=== PATIENT | female | born 1980 ===

== ENCOUNTER 2019-06-15 20:11 | Emergency (ER) | payer OTHER, SELFPAY ==
[2019-06-15 20:20] VITALS: BP 135/100; PULSE 99; RESP 15; TEMP 36.8; O2SAT 99; BMI 33.6
--- NOTE | 2019-06-15 20:23 | DI.US.S_ITS ---
PROCEDURE: US OB LIMITED INDICATIONS: CRAMPING OUTSIDE/PRIOR DATING DATA: Last menstrual period (LMP): Unknown. LMP-based estimated date of delivery (AKANKSHA): Not applicable. First dating scan (date and location): 06/15/19. Estimated date of delivery (AKANKSHA) from first dating scan: 11/17/2019. TECHNIQUE: Real-time scanning was performed of the fetus, with image documentation. Endovaginal scanning: Not performed COMPARISON: None. FINDINGS: A single living intrauterine gestation is present. Presentation: Vertex. Placenta: Placental position is anterior fundal, without previa. Amniotic fluid index: 10.8 cm cm, normal range is 5-24 cm. largest vertical fluid pocket measured 3.0 cm. heart rate: 141 beats per minute. Maternal cervical canal: 3.5 cm long. Normal lower limit is 2.5 cm. Estimated gestational age is approximately 17 weeks and 6 days. No evidence for perigestational hemorrhage. No sonographic evidence to suggest placental abruption. IMPRESSION: 1. Single living intrauterine gestation with an estimated gestational age of approximately 17 weeks and 6 days. 2. No acute sonographic abnormalities identified. 3. Recommend routine second trimester anatomic screening survey. No significant discrepancy with the manager shift radiology preliminary report. Dictated by: Jatinder Grigsby M.D. on 06/16/2019 at 10:21 Approved by: Jatinder Grigsby M.D. on 06/16/2019 at 10:25
[2019-06-15] MEDS: METOCLOPRAMIDE 10 MG/2 ML INJ IV (20:45)
[2019-06-15] MEDS: SODIUM CHLORIDE 0.9% 1,000 ML 1000 ML IV (20:45)
[2019-06-15 20:47] LABS: Add Manual Diff / Slide Review NO; Basophils Absolute Auto 100 /uL (0-100); Basophils Percent Auto 0.9 % (0-2); Eosinophils Absolute Auto 100 /uL (0-450); Hematocrit 39.5 % (36-46); Hemoglobin 13.2 g/dL (12.0-16.0); Lymphocytes Absolute Auto 2500 /uL (1100-4500); Mean Corpuscular HGB Conc 33.4 % (30-36); Mean Corpuscular Hemoglobin 26.8 PG (26-34); Mean Corpuscular Volume 80.5 fL (80-100); Monocytes Absolute Auto 500 /uL (0-900); Monocytes Percent Auto 4.2 % (3-14); Neutrophils Absolute Auto 9700 /uL (1500-7000); Neutrophils Percent Auto 74.9 % (50-75); Platelet Count 309 X10^3/uL (150-400); Red Blood Cell Count 4.92 X10^6/uL (4.0-5.2); Red Cell Distribution Width 13.5 % (11.6-14.8)
[2019-06-15 21:02] LABS: Prothrombin Time 11.1 SECONDS (10.1-12.7)
[2019-06-15 21:04] LABS: PTT Partial Thromboplastin Tim 29 SECONDS (26.4-36.2)
[2019-06-15 21:06] LABS: Alanine Aminotransferase 6 IU/L (9-52); Albumin Globulin Ratio 1.1 (1.0-2.8); Alkaline Phosphatase 90 U/L (38-126); Aspartate Aminotransferase 22 IU/L (14-36); Bilirubin Total 0.4 mg/dL (0.2-1.3); Blood Urea Nitrogen 8 mg/dL (7-17); Calcium 9.5 mg/dL (8.4-10.2); Carbon Dioxide 23 mmol/L (22-32); Chloride 103 mmol/L (98-107); Estimated Glomerular Filt Rate > 60.0 mL/min (>60); Globulin 3.5 g/dL (1.7-4.1); Glucose 190 mg/dL (70-100); HEMOLYSIS 43 (0-50); Magnesium 1.8 mg/dL (1.6-2.3); Potassium 3.9 mmol/L (3.4-5.1); Sodium 136 mmol/L (137-145); Total Protein 7.5 g/dL (6.3-8.2)
[2019-06-15 21:38] VITALS: BP 114/64; PULSE 93; RESP 16; O2SAT 100
[2019-06-15 22:09] VITALS: BP 127/76; PULSE 94; RESP 16; O2SAT 98
--- NOTE | 2019-06-15 22:11 | ED_ITS ---
HPI - Headache General Chief Complaint: Headache Stated Complaint: 18wks preg,headache Time Seen by Provider: 06/15/19 20:16 Source: patient and family Mode of arrival: ambulatory Limitations: no limitations History of Present Illness HPI Narrative: 38-year-old female nonsmoker with history of hypertension is a she a P1 at 18 weeks and presents with her the chief complaint of a left-sided headache off and on for the past few days. She denies other symptoms such as blurred vision, nausea, vomiting or neurologic symptoms such as numbness, tingling or weakness. She has had no recent injury. She has been eating and drinking without difficulty. Her diabetes is become increasingly difficult to control and she was recently put on insulin. She is considered a high risk and managed by [facility] in [place]. She denies much in the way of provocation or palliation MD Complaint: headache Onset description: gradual Location: left Severity: moderate Quality: aching and throbbing Relieving factors: nothing Exacerbating factors: none Associated symptoms: none Treatments prior to arrival: acetaminophen Related Data Allergies Allergy/AdvReac Type Severity Reaction Status Date / Time iodine Allergy Verified 06/15/19 20:26 Sulfa (Sulfonamide Allergy Verified 06/15/19 20:26 Antibiotics) Review of Systems Constitutional Constitutional: Denies chills, Denies fatigue, Denies fever(s), Denies frequent falls, Reports headache(s), Denies lethargy and Denies weakness Eyes Eyes: Denies change in vision, Denies eye discharge, Denies irritation and Denies loss of vision ENT Ears, Nose, Mouth, and Throat: Denies change in voice, Denies dizziness, Reports headache(s), Denies neck pain, Denies sore throat and Denies throat swelling Cardiovascular Cardiovascular: Denies chest pain, Denies irregular heart rhythm, Denies lightheadedness, Denies palpitations, Denies dyspnea, Denies dyspnea on exertion and Denies orthopnea Respiratory Respiratory: Denies cough, Denies dyspnea, Denies dyspnea on exertion and Denies wheezing Gastrointestinal Gastrointestinal: Denies abdominal pain, Denies change in bowel habits, Denies diarrhea, Denies nausea and Denies vomiting Genitourinary Genitourinary: Denies hematuria, Denies flank pain, Denies urinary incontinence and Denies urinary urgency Musculoskeletal Musculoskeletal: Denies back pain, Denies muscle weakness, Denies neck pain, Denies numbness and Denies tingling Integumentary/Breasts Skin/Breast: Denies pruritus, Denies erythema, Denies rash and Denies wounds Neurologic Neurologic: Denies behavioral changes, Denies confusion, Denies dizziness, Denies frequent falls, Reports headache(s), Denies loss of vision, Denies numbness, Denies tingling and Denies weakness Psychiatric Psychiatric: Denies anxiety, Denies behavioral changes, Denies confusion, Denies depression, Denies homicidal ideation and Denies suicidal ideation Endocrine Endocrine: Denies fatigue, Denies flushing and Denies palpitations Hematologic/Lymphatic Hematologic/Lymphatic: Denies easy bruising Allergic/Immunologic Allergic/Immunologic: Denies urticaria, Denies throat swelling and Denies wheezing PFSH Social History Smoking Status: Unknown if ever smoked Social History Smoking Status: Unknown if ever smoked Exam Narrative Exam Narrative: GENERAL: [38] year old patient appears stated age. Well- nourished, well-developed patient, in mild distress. Rubbing the left side of her head HEAD: Atraumatic. Normocephalic. EYES: Pupils equal round and reactive. Extraocular motions intact. No scleral icterus. No injection or drainage. ENT: Nose without bleeding, purulent drainage. Throat without erythema, tonsillar hypertrophy or exudate. Airway patent. NECK: Trachea midline. Non tender CARDIOVASCULAR: Regular rate and rhythm without murmurs, gallops, or rubs. RESPIRATORY: Clear to auscultation. Breath sounds equal bilaterally. No wheezes, rales, or rhonchi. GASTROINTESTINAL: Abdomen soft, non-tender, nondistended. EXTREMITIES: No edema or joint tenderness. BACK: Nontender without deformity or crepitance. No flank tenderness. NEURO: AOx3. SKIN: No rash or erythema of visible areas NIH Stroke Scale 1a. LOC: Patient is alert and keenly responsive (0) 1b. LOC Questions: Patient answers both LOC questions accurately (0) 1c. LOC Commands: Patient performs both tasks correctly (0) 2. Best Gaze: Normal (0) 3. Visual: No visual loss (0) 4. Facial palsy: Normal symmetrical movements (0) 5. Motor arm: No drift (0) 6. Motor leg: No drift (0) 7. Limb ataxia: Absent (0) 8. Sensory: Normal (0) 9. Best language: No aphasia; normal (0) 10. Dysarthria: Normal (0) 11. Extinction and inattention: No abnormality (0) NIHSS: 0 Initial Vital Signs Initial Vital Signs: Vital Signs Temperature 98.2 F 06/15/19 20:20 Pulse Rate 99 H 06/15/19 20:20 Respiratory Rate 15 06/15/19 20:20 Blood Pressure 135/100 H 06/15/19 20:20 Pulse Oximetry 99 06/15/19 20:20 Course Orders Ordered: ED Orders 06/15/19 20:23 US OB limited Stat 06/15/19 20:35 Complete Blood Count AUTO DIFF Stat Comprehensive Metabolic Panel Stat Magnesium Stat Partial Thromboplastin Time Stat Prothrombin Time INR Stat Discontinued Medications Acetaminophen (Tylenol) 975 mg PO NOW ONE Stop: 06/15/19 23:11 Last Admin: 06/15/19 23:13 Dose: 975 mg Documented by: MASSIEL Sodium Chloride (Normal Saline 0.9%) 1,000 mls @ 1,000 mls/hr IV BOLUS ONE Stop: 06/15/19 21:22 Last Infusion: 06/15/19 23:14 Dose: 0 mls/hr Documented by: Admin: 06/15/19 20:45 Dose: 1,000 mls/hr Documented by: ROLY Metoclopramide HCl (Reglan) 10 mg IV NOW ONE Stop: 06/15/19 20:24 Last Admin: 06/15/19 20:45 Dose: 10 mg Documented by: ROLY Reevaluation(s) Reevaluation #1: Significant improvement of symptoms after above-stated therapies Consultations Consultation #1: Discussion with OB Gyne regarding other atypical headaches very of those in . After discussion of history, physical and response to therapies there is no suggestion/recommendation to further pursue other diagnosis. OK for DC and follow up Vital Signs Vital signs: Vital Signs - 8 hr 06/15/19 21:38 06/15/19 22:09 06/15/19 22:56 Pulse Rate 93 H 94 H 101 H Respiratory Rate 16 16 14 Blood Pressure Blood Pressure [Left Arm] 114/64 127/76 119/63 Pulse Oximetry 100 98 98 09/06/19 00:35 Pulse Rate 98 H Respiratory Rate 18 Blood Pressure 122/73 Blood Pressure [Left Arm] Pulse Oximetry 98 MDM - Headache Lab Data Result diagrams: 06/15/19 20:35 06/15/19 20:35 Labs: Lab Results 06/15/19 06/15/19 06/15/19 Range/Units 20:35 20:35 20:35 WBC 13.0 H (4.5-11.0) X10^3/uL RBC 4.92 (4.0-5.2) X10^6/uL Hgb 13.2 (12.0-16.0) g/dL Hct 39.5 (36-46) % MCV 80.5 (80-100) fL MCH 26.8 (26-34) PG MCHC 33.4 (30-36) % RDW 13.5 (11.6-14.8) % Plt Count 309 (150-400) X10^3/uL Neut % (Auto) 74.9 (50-75) % Lymph % (Auto) 19.0 L (25-40) % Roberts % (Auto) 4.2 (3-14) % Eos % (Auto) 1.0 L (2-4) % Baso % (Auto) 0.9 (0-2) % Neut # (Auto) 9700 H (5713-4701) /uL Lymph # (Auto) 2500 (1981-9964) /uL Roberts # (Auto) 500 (0-900) /uL Eos # (Auto) 100 (0-450) /uL Baso # (Auto) 100 (0-100) /uL PT 11.1 (10.1-12.7) SECONDS INR 1.0 (0.9-1.3) APTT 29 (26.4-36.2) SECONDS Sodium 136 L (137-145) mmol/L Potassium 3.9 (3.4-5.1) mmol/L Chloride 103 (98-107) mmol/L Carbon Dioxide 23 (22-32) mmol/L BUN 8 (7-17) mg/dL Creatinine 0.50 L (0.52-1.04) mg/dL Estimated GFR > 60.0 (>60) mL/min BUN/Creatinine Ratio 16.0 (6-22) Glucose 190 H (70-100) mg/dL Calcium 9.5 (8.4-10.2) mg/dL Magnesium 1.8 (1.6-2.3) mg/dL Total Bilirubin 0.4 (0.2-1.3) mg/dL AST 22 (14-36) IU/L ALT 6 L (9-52) IU/L Alkaline Phosphatase 90 (38-126) U/L Total Protein 7.5 (6.3-8.2) g/dL Albumin 4.0 (3.5-5.0) g/dL Globulin 3.5 (1.7-4.1) g/dL Albumin/Globulin Ratio 1.1 (1.0-2.8) Urine Dip Bedside Urine Glucose 1000 mg/dl Bedside Urine Bilirubin - Negative Bedside Urine Ketone + 15 Urine Specific [place] 1.025 Bedside Urine Occult Blood - Negative Bedside Urine pH 6.0 Bedside Urine Protein +/- 15 Bedside Urine Urobilinogen +/- 1mg Bedside Urine Nitrite - Negative Bedside Urine Leukocytes - Negative Esterase MDM Narrative Medical decision making narrative: Multiple etiologies for patient's symptoms considered including: [Hypertensive emergency versus preeclampsia (thought less likely given rapid improvement of blood pressure, and gestational age less than 20 weeks) versus venous thrombosis versus other] Patient's symptoms improved or duration of stay with above-stated therapies. Findings and discharge diagnosis discussed with patient/family followed by verbalization of understanding Return precautions discussed with patient/family whom verbalize understanding. Discharge Plan Departure Patient Disposition: Home Clinical Impression: Headache Qualifiers: Headache type: unspecified Headache chronicity pattern: unspecified pattern Intractability: not intractable Qualified Code(s): R51 - Headache Discharge Date/Time: 06/16/19 00:36 Instructions: DI for Headache Activity Restrictions/Additional Instructions: *You have been diagnosed with [headache] *What to do: *Take medications as directed: Tylenol, stay well hydrated *Follow up with your primary care provider in 2-3 days, call for an appointment. Let them know you were seen in the Emergency Department and that we ask that you be seen in follow up *Return to ER if you should have any new, worsening or concerning symptoms Referrals: Ila Lee, [Primary Care Provider] -
[2019-06-15 22:56] VITALS: BP 119/63; PULSE 101; RESP 14; O2SAT 98
[2019-06-15] MEDS: ACETAMINOPHEN 325 MG TABLET 975 MG PO (23:13)
[2019-06-16 00:35] VITALS: BP 122/73; PULSE 98; RESP 18; O2SAT 98
== END 2019-06-16 00:36 | disposition home or self-care (01) ==
PROVIDERS: Emergency Provider Emergency Medicine; PCP Family Medicine
DX: O26.892 Other specified pregnancy related conditions, second trimester (principal); R51 Headache; Z3A.18 18 weeks gestation of pregnancy
CPT/HCPCS: 36591; 76815; 80053; 81003; 83735; 85025; 85610; 85730; 96361; 96374; 99283; 99284; J2765